=== PATIENT | female | born 1995 | race Caucasian/White ===

== ENCOUNTER 2020-04-19 10:59 | Outpatient (CLI) | payer BC, SELFPAY ==
[2020-04-19 11:21] VITALS: BMI 19.3
--- NOTE | 2020-04-19 11:31 | ECG_ITS ---
[facility] Test Date: 2020-04-19 Pat Name: Ana M Powers Department: Room: Gender: Female Yard Person: Kavya Franklin : 1995 Requested By: Julia Angel Order Number: [id number] Jordan MD: Julia Angel M.D. Interpretive Statements NAME OF STUDY: TREADMILL STRESS TEST INDICATION: Atrial Arrhythmia, PROCEDURE: At the baseline, the patient's blood pressure was 124/76 with a heart rate of 136. The baseline electrocardiogram showed sinus tachycardia with some nonspecific T wave changes the patient exercised for 5 minutes and 23 seconds on a standard Kushal protocol. Patient attained a maximum heart rate of 175 beats per minute(90% of the maximum predicted heart rate) with a blood pressure at the peak exercise of 153/84 mm Hg. The EKG at the peak exercise revealed no significant changes. Patient did not have any chest pain or any significant cardiac arrhythmias with the exercise During the recovery phase, there were no new changes. Blood pressure at the end of the recovery phase was 126/86 mm Hg with a heart rate of 112 per minute. CONCLUSION: 1. No significant EKG changes with the treadmill exercise 2. No exercise-induced chest pain or cardiac arrhythmia 3. Slightly impaired exercise tolerance, attained a maximum of 7.0 METs Electronically Signed On 04-20-2020 18:21:55 CLIENT SERVICES ADMINISTRATOR by Julia Angel M.D. [id number]
[2020-04-19 11:42] VITALS: BP 131/91; PULSE 119
--- NOTE | 2020-04-19 14:15 | USCV_ITS ---
Gio Ana M Age: 24 Gender: F : 1995 Exam Date: 04/19/2020 11:37 Ordering Phys: Julia Angel MD ([email or web address]) Technologist: Sarah Wilson Exam Location: [facility] [place] Indication: arrhythmia,heart murmur BP: 128 / 86 HR: 143 Rhythm: Sinus Technical Quality: Adequate MEASUREMENTS (Male / Female) Normal Values 2D ECHO LV Diastolic Diameter PLAX 3.6 cm 4.2 - 5.9 / 3.9 - 5.3 cm LV Systolic Diameter PLAX 2.9 cm LV Chamber Size 2.9 cm IVS Diastolic Thickness 1.0 cm 0.6 - 1.0 / 0.6 - 0.9 cm IVS Systolic Thickness 1.2 cm LVPW Diastolic Thickness 1.1 cm 0.6 - 1.0 / 0.6 - 0.9 cm LVPW Systolic Thickness 1.3 cm RV Chamber Size 2.8 cm LVOT Diameter 2.1 cm LV Ejection Fraction 2D Teich 42.9 % LV Ejection Fraction MOD 2C 51.2 % LV Ejection Fraction 2C AL 56.9 % LA Diameter 2.0 cm LA Width 2.8 cm LA Height 3.3 cm RA Width 2.6 cm RA Height 3.2 cm Aorta at Sinotubular Diameter 2.7 cm M-MODE Aortic Annulus Diameter 3.2 cm LA Ao Ratio MM 0.7 DOPPLER AV Peak Velocity 93.0 cm/s LVOT Peak Velocity 92.0 cm/s AV Area Cont Eq vti 3.0 cm squared AV Area Cont Eq pk 3.3 cm squared MV Area PHT 8.5 cm squared Mitral E to A Ratio 2.5 MV E' Velocity 45.0 cm/s Mitral E to MV E' Ratio 5.4 Mitral E to LV E' Lateral Ratio 5.3 Mitral E to LV E' Septal Ratio 5.5 TR Peak Velocity 173.3 cm/s TR Peak Gradient 12.0 mmHg TV Peak E Velocity 87.0 cm/s Right Atrial Pressure 3.0 mmHg Pulmonary Artery Systolic Pressu 15.0 mmHg PV Peak Velocity 64.0 cm/s RV Acceleration Time 0.2 s RV Ejection Time 0.4 s RV AcT/ET 0.5 FINDINGS Left Ventricle Normal left ventricular size and systolic function, EF 56 %. No regional wall motion abnormalities. Right Ventricle The right ventricle is normal in size and function. Right Atrium The right atrium is normal in size. Left Atrium The left atrium is normal in size. Mitral Valve No gross abnormalities noted Aortic Valve No gross abnormalities noted Tricuspid Valve No gross abnormalities noted Pulmonic Valve No gross abnormalities noted Pericardium Normal pericardium without effusion. Aorta Normal ascending aorta dimension. CONCLUSIONS Normal left ventricular size and systolic function, EF 56 %. No regional wall motion abnormalities. Normal chamber sizes. No significant stenotic or regurgitant lesions. There are no intracardiac masses. There is no pericardial effusion. Dr Julia Angel MD FACC (Electronically Signed) Final Date: 19 April 2020 19:43 S
== END 2020-04-19 11:00 | disposition home or self-care (01) ==
LOC: CDL 11:03
PROVIDERS: PCP Nurse Practitioner Family; Visit Provider Internal Medicine Cardiovascular Disease
DX: R01.1 Cardiac murmur, unspecified (principal); I49.9 Cardiac arrhythmia, unspecified
CPT/HCPCS: 93017; 93306